=== PATIENT | female | born 1960 | race Caucasian/White ===

== ENCOUNTER 2016-05-04 13:59 | Emergency (ER) | payer BC, OTHER ==
[~2016-05-04] VITALS: Ht 165.1 cm; Wt 130.0 kg
[~2016-05-04 13:59] MED LIST: DIGECAP6 PO; HYDR12.56 PO; LORT5TAB PO; METO50 PO; MULT-65 PO; PROT40TA PO
[2016-05-04 14:03] VITALS: BP 190/104; PULSE 84; RESP 15; TEMP 98.1; O2SAT 98
[2016-05-04 14:11] VITALS: BP 190/78; PULSE 91; RESP 16; O2SAT 96
--- NOTE | 2016-05-04 14:28 | PD ---
HPI Chief Complaint: Neuro Symptoms/ Deficits Time Seen by Provider: 14:20 Travel History International Travel<30 days: No Contact w/Intl Traveler<30days: No Traveled to known affect area: No History of Present Illness HPI 56-year-old female complains of right-sided facial weakness. Patient states that symptoms started yesterday evening. Patient states that she noticed a right-sided facial drooping when she brushed her teeth last night. Patient denies any headache. Patient denies any visual change. Patient denies any neck pain. Patient denies any chest pain or shortness of breath. Patient denies abdominal pain. Patient denies any focal weakness or numbness of the extremity. Patient has history of elevated blood pressure. Patient is not on any medication for high blood pressure. Patient has history of diet-controlled diabetes. Patient denies cholesterol problem. Patient is a nonsmoker. Patient denies any history of TIA or CVA. PFSH Past Medical History Arthritis: Yes Blood Disorders: No Cancer: Yes (LYMPHOMA) Cardiovascular Problems: No Chemotherapy: Yes Diabetes: Yes Patient Takes Glucophage: No Diminished Hearing: No Endocrine: No Gastrointestinal Disorders: Yes (REFLUX) GERD: Yes Genitourinary: No Hiatal Hernia: Yes Hypertension: Yes Immune Disorder: No Implanted Vascular Access Dvce: Yes Medical other: Yes Musculoskeletal: Yes Neurologic: Yes Psychiatric: No Reproductive: No Respiratory: No Radiation Therapy: No Thyroid Disease: No Influenza Vaccination: No ?: Not Past Surgical History Abdominal Surgery: Yes AICD: No Cholecystectomy: Yes Gynecologic Surgery: Yes Hysterectomy: Yes (VAGINAL HYSTERECTOMY 12/18) Joint Replacement: Yes (BILAT HIP) Oral Surgery: Yes (wisdom teeth removed) Pacemaker: No Social History Alcohol Use: Yes (rare) Tobacco Use: No Substance Use: No Allergies-Medications (Allergen,Severity, Reaction): Coded Allergies: No Known Allergies (Unverified , 05/12/12) Reported Meds & Prescriptions Reported Meds & Active Scripts Active Reported Digestive Enzymes Enzymes Cap 1 PO DAILY Multi-Vitamin Daily (Multivitamins) Daily Tab 1 PO DAILY Hctz (Hydrochlorothiazide) 12.5 Mg Cap 12.5 Mg PO DAILY Protonix (Pantoprazole Sodium) 40 Mg Tabdr 40 Mg PO DAILY Lortab 5/500 (Acetaminophen/Hydrocodone Bitart) 5 Mg/500 Mg Tab 1 Tab PO Q6HPRN Lopressor 50 Mg Tab (Metoprolol Tartrate) 50 Mg Tab 50 Mg PO BID Review of Systems General / Constitutional: No: Fever Eyes: No: Visual changes HENT: No: Headaches Cardiovascular: No: Chest Pain or Discomfort Respiratory: No: Shortness of Breath Gastrointestinal: No: Abdominal Pain Genitourinary: No: Dysuria Musculoskeletal: No: Pain Skin: No Rash Neurologic: Positive: Weakness Psychiatric: No: Depression Endocrine: No: Polydipsia Hematologic/Lymphatic: No: Easy Bruising Physical Exam Narrative GENERAL: Well-nourished, well-developed patient. SKIN: Warm and dry. HEAD: Normocephalic. EYES: No scleral icterus. No injection or drainage. Pupils 3 mm equal reactive. NECK: Supple, trachea midline. No JVD or lymphadenopathy. CARDIOVASCULAR: Regular rate and rhythm without murmurs, gallops, or rubs. RESPIRATORY: Breath sounds equal bilaterally. No accessory muscle use. GASTROINTESTINAL: Abdomen soft, non-tender, nondistended. MUSCULOSKELETAL: No cyanosis, or edema. BACK: Nontender without obvious deformity. No CVA tenderness. Neurologic exam: Patient had weakness on the right side the face including the right forehead, right eyelid and right side of the mouth. Deep tendon reflexes 2+ and equal. Negative Babinski. Data Data Last Documented VS Vital Signs Date Time Temp Pulse Resp B/P Pulse Ox O2 Delivery O2 Flow Rate FiO2 05/04/16 14:15 16 95 Room Air 05/04/16 14:11 91 190/78 05/04/16 14:03 98.1 [facility] Medical Decision Making Medical Screen Exam Complete: Yes Emergency Medical Condition: Yes Differential Diagnosis Differential diagnosis including Suggs's palsy, TIA, CVA, uncontrolled hypertension. Narrative Course 56-year-old female complains of right-sided facial weakness. The symptoms started yesterday evening. The symptoms typical of Suggs's palsy. No evidence of TIA or CVA. Accu-Chek blood sugar 148. Patient's blood pressures elevated.. Clonidine 0.1 mg by mouth given. Diagnosis Primary Impression: Suggs's palsy Additional Impression: Elevated blood pressure reading Patient Instructions: General Instructions Additional Instructions: Take medications as directed. Eyedrop and eye patch as directed. Follow up with neurologist and personal physician. Return if worse. Med/Other Pt SpecificInfo: Prescription(s) given Scripts Lisinopril 10 Mg Tab10 Mg PO DAILY #30 TAB Ref 0 Prov:Braxton John MD 05/04/16 Prednisone 20 Mg Tab20 Mg PO BID #14 TAB Prov:Braxton John MD 05/04/16 Acyclovir (Zovirax)800 Mg [id number] Mg PO 5 TIMES A DAY #35 TAB Prov:Braxton John MD 05/04/16 Disposition: 01 DISCHARGE HOME Condition: Stable Braxton John MD May 04, 2016 14:28
[2016-05-04] MEDS ORDERED: ACYC-101 PO (14:35)
[2016-05-04] MEDS ORDERED: PRED20 PO (14:35)
[2016-05-04] MEDS ORDERED: LISI10TA3 PO (14:35)
[2016-05-04 14:39] VITALS: BP 178/115; PULSE 82; RESP 18; O2SAT 95
[2016-05-04] MEDS ORDERED: cloNIDine HCL 0.1 MG TAB PO ONE (14:45)
[2016-05-04 15:16] VITALS: BP 161/89
== END 2016-05-04 15:27 | disposition home or self-care (01) ==
LOC: NEPA 13:59
DX: G51.0 Bell's palsy (principal); R03.0 Elevated blood-pressure reading, without diagnosis of hypertension; I10 Essential (primary) hypertension; E11.9 Type 2 diabetes mellitus without complications
CPT/HCPCS: 99284